=== PATIENT | male | born 1995 | race Caucasian/White ===

== ENCOUNTER 2017-07-15 21:56 | Observation (INO) | payer BC ==
[~2017-07-15] VITALS: Ht 190.5 cm; Wt 113.4 kg
[2017-07-15 22:00] VITALS: BP 153/65; PULSE 52; RESP 16; TEMP 98.3; O2SAT 100
[2017-07-15 22:13] VITALS: BP 148/79; PULSE 65; RESP 17; O2SAT 98
[2017-07-15 22:57] LABS: AUTOMATED NEUTROPHIL # 4.2 TH/MM3 (1.8-7.7); BASOPHIL % 0.5 % (0.0-2.0); EOSINOPHIL # 0.2 TH/MM3 (0-0.4); EOSINOPHIL % 3.3 % (0.0-4.0); HEMATOCRIT 39.4 % (39.0-51.0); HEMOGLOBIN 13.2 GM/DL (13.0-17.0); LYMPH % 33.7 % (9.0-44.0); LYMPHOCYTE # 2.5 TH/MM3 (1.0-4.8); MEAN CELL VOLUME 88.4 FL (80.0-100.0); MEAN CORPUSCULAR HEMOGLOBIN 29.5 PG (27.0-34.0); MEAN CORPUSCULAR HGB CONC 33.4 % (32.0-36.0); MEAN PLATELET VOLUME 8.4 FL (7.0-11.0); MONO % 7.8 % (0.0-8.0); MONOCYTE # 0.6 TH/MM3 (0-0.9); NEUT % 54.7 % (16.0-70.0); PLATELET COUNT 202 TH/MM3 (150-450); RED BLOOD COUNT 4.46 MIL/MM3 (4.50-5.90); RED CELL DISTRIBUTION WIDTH 12.9 % (11.6-17.2); WHITE BLOOD COUNT 7.5 TH/MM3 (4.0-11.0)
[2017-07-15 23:06] LABS: CHLORIDE 106 MEQ/L (98-107); SODIUM (NA) 140 MEQ/L (136-145)
[2017-07-15 23:09] LABS: CALCIUM 8.7 MG/DL (8.5-10.1)
[2017-07-15 23:10] LABS: ALBUMIN 3.5 GM/DL (3.4-5.0); BICARBONATE 28.1 MEQ/L (21.0-32.0); BLOOD UREA NITROGEN 27 MG/DL (7-18); GLUCOSE,RANDOM 101 MG/DL (74-106)
[2017-07-15 23:13] LABS: ALT (GPT) 31 U/L (12-78); AST (GOT) 24 U/L (15-37); GLOMERULAR FILTRATION RATE 59 ML/MIN (>89)
[2017-07-15 23:14] LABS: TOTAL BILIRUBIN ADULT 0.2 MG/DL (0.2-1.0)
[2017-07-15 23:15] LABS: ALKALINE PHOSPHATASE 58 U/L (45-117)
[2017-07-16 00:11] LABS: BILIRUBIN, URINE NEG (NEG); BLOOD, URINE NEG (NEG); GLUCOSE,URINE NEG (NEG); KETONE, URINE NEG (NEG); NITRITE,URINE NEG (NEG); URINE COLOR YELLOW (YELLW/STRAW); URINE LEUKOCYTE ESTERASE NEG (NEG)
[2017-07-16 00:16] LABS: SQUAMOUS EPITHELIAL CELL URINE 0-5 /hpf (0-5); WBC, URINE 0-2 /hpf (0-5)
[2017-07-16] MEDS ORDERED: SODIUM CHLOR 0.9% 1000 ML INJ 1,000 ML IV SCH (00:18)
--- NOTE | 2017-07-16 00:24 | PD ---
HPI Chief Complaint: Abdominal Pain Time Seen by Provider: 00:18 Travel History International Travel<30 days: No Contact w/Intl Traveler<30days: No Traveled to known affect area: No History of Present Illness HPI The patient is a 22-year-old male that complains of pain in the right middle quadrant for about 48 hours. Yesterday had nausea with vomiting. He denies any fever. He has never had any abdominal surgery and still has his appendix and gallbladder. His pain is dull pain and a 6/10. PFSH Past Medical History Medical History: Denies Significant Hx Diminished Hearing: No Immunizations Current: Yes Tetanus Vaccination: > 5 Years Influenza Vaccination: No Past Surgical History Surgical History: No Previous Surgery Social History Alcohol Use: No Tobacco Use: No Substance Use: No Allergies-Medications (Allergen,Severity, Reaction): Coded Allergies: No Known Allergies (Unverified , 07/15/17) Reported Meds & Prescriptions Reported Meds & Active Scripts Active No Active Prescriptions or Reported Medications Review of Systems Except as stated in HPI: all other systems reviewed are Neg Physical Exam Narrative GENERAL: The patient is alert, oriented 3 in slight apparent distress with his abdominal discomfort. His vital signs show blood pressure 153/65 but repeat blood pressure is 148/79. The rest of the vital signs are normal. SKIN: Focused skin assessment warm/dry. HEAD: Atraumatic. Normocephalic. EYES: Pupils equal and round. No scleral icterus. No injection or drainage. ENT: No nasal bleeding or discharge. Mucous membranes pink and moist. NECK: Trachea midline. No JVD. CARDIOVASCULAR: Regular rate and rhythm. No murmur appreciated. RESPIRATORY: No accessory muscle use. Clear to auscultation. Breath sounds equal bilaterally. GASTROINTESTINAL: Abdomen soft, with tenderness to direct palpation to the right of the umbilicus, nondistended. Hepatic and splenic margins not palpable. No guarding or rebound is present. MUSCULOSKELETAL: No obvious deformities. No clubbing. No cyanosis. No edema. NEUROLOGICAL: Awake and alert. No obvious cranial nerve deficits. Motor grossly within normal limits. Normal speech. PSYCHIATRIC: Appropriate mood and affect; insight and judgment normal. Data Data Last Documented VS Vital Signs Date Time Temp Pulse Resp B/P (MAP) Pulse Ox O2 Delivery O2 Flow Rate FiO2 07/16/17 00:34 72 18 138/63 (88) 98 Room Air 07/15/17 22:00 98.3 Orders Orders Complete Blood Count With Diff (07/15/17 22:49) Comprehensive Metabolic Panel (07/15/17 22:49) Urinalysis - C+S If Indicated (07/15/17 22:49) Iv Access Insert/Monitor (07/15/17 22:49) Lipase (07/15/17 22:49) Ct Abd/Pel W Iv Contrast(Rout) (07/16/17 00:18) Ecg Monitoring (07/16/17 00:18) Oximetry (07/16/17 00:18) Sodium Chlor 0.9% 1000 Ml Inj (Ns 1000 M (07/16/17 00:18) Sodium Chloride 0.9% Flush (Ns Flush) (07/16/17 00:30) Piperacillin/Den 3.375 Gm Vial (Zosyn 3. (07/16/17 02:30) Admit Order (Ed Use Only) (07/16/17 02:20) Labs Laboratory Tests Test 07/15/17 22:40 07/15/17 23:55 White Blood Count 7.5 TH/MM3 Red Blood Count 4.46 MIL/MM3 Hemoglobin 13.2 GM/DL Hematocrit 39.4 % Mean Corpuscular Volume 88.4 FL Mean Corpuscular Hemoglobin 29.5 PG Mean Corpuscular Hemoglobin Concent 33.4 % Red Cell Distribution Width 12.9 % Platelet Count 202 TH/MM3 Mean Platelet Volume 8.4 FL Neutrophils (%) (Auto) 54.7 % Lymphocytes (%) (Auto) 33.7 % Monocytes (%) (Auto) 7.8 % Eosinophils (%) (Auto) 3.3 % Basophils (%) (Auto) 0.5 % Neutrophils # (Auto) 4.2 TH/MM3 Lymphocytes # (Auto) 2.5 TH/MM3 Monocytes # (Auto) 0.6 TH/MM3 Eosinophils # (Auto) 0.2 TH/MM3 Basophils # (Auto) 0.0 TH/MM3 CBC Comment DIFF FINAL Differential Comment Blood Urea Nitrogen 27 MG/DL Creatinine 1.50 MG/DL Random Glucose 101 MG/DL Total Protein 7.0 GM/DL Albumin 3.5 GM/DL Calcium Level 8.7 MG/DL Alkaline Phosphatase 58 U/L Aspartate Amino Transf (AST/SGOT) 24 U/L Alanine Aminotransferase (ALT/SGPT) 31 U/L Total Bilirubin 0.2 MG/DL Sodium Level 140 MEQ/L Potassium Level 4.2 MEQ/L Chloride Level 106 MEQ/L Carbon Dioxide Level 28.1 MEQ/L Anion Gap 6 MEQ/L Estimat Glomerular Filtration Rate 59 ML/MIN Lipase 161 U/L Urine Color YELLOW Urine Turbidity CLEAR Urine pH 6.0 Urine Specific [place] 1.025 Urine Protein NEG mg/dL Urine Glucose (UA) NEG mg/dL Urine Ketones NEG mg/dL Urine Occult Blood NEG Urine Nitrite NEG Urine Bilirubin NEG Urine Urobilinogen 0.2 MG/DL Urine Leukocyte Esterase NEG Urine WBC 0-2 /hpf Urine Squamous Epithelial Cells 0-5 /hpf Microscopic Urinalysis Comment CULT NOT INDICATED MDM Medical Decision Making Medical Screen Exam Complete: Yes Emergency Medical Condition: Yes Medical Record Reviewed: Yes Interpretation(s) The CBC is normal. The urinalysis is normal. The complete metabolic profile shows a BUN of 27, creatinine 1.5, GFR 59 but is otherwise unremarkable. Lipase is normal. The CT abdomen/pelvis shows an early, uncomplicated acute appendicitis. Differential Diagnosis Acute appendicitis, urinary stone, colitis, cholecystitis, gastritis Narrative Course The patient has an early acute appendicitis. The imaging show the appendicitis was early in the white count is normal. The patient will be [address] Armijo and is given Zosyn. Diagnosis Primary Impression: Acute appendicitis Admitting Information Admitting Physician Requests: Observation Scripts No Active Prescriptions or Reported Meds Atilio Santos MD Jul 16, 2017 00:24
[2017-07-16] MEDS ORDERED: SODIUM CHLORIDE 0.9% FLUSH 10 ML FLUSH IV FLUSH PRN (00:30)
[2017-07-16 00:34] VITALS: BP 138/63; PULSE 72; RESP 18; O2SAT 98
[2017-07-16] MEDS ORDERED: IOHEXOL 350 MG/ML 10 ML VIAL (for RAD DIAG) IVCONTRAST ONE (01:12)
--- NOTE | 2017-07-16 01:54 | RADRPT ---
EXAM DATE/TIME: 07/16/2017 00:50 [facility] COMPARISON: No previous studies available for comparison. INDICATIONS : Right sided abdominal pain, nausea, vomiting and chills. IV CONTRAST: 85 cc Omnipaque 350 (iohexol) IV ORAL CONTRAST: No oral contrast ingested. RADIATION DOSE: 18.45 CTDIvol (mGy) MEDICAL HISTORY : None SURGICAL HISTORY : None. ENCOUNTER: Initial ACUITY: 1 day PAIN SCALE: 5/10 LOCATION: Right lower quadrant TECHNIQUE: Volumetric scanning of the abdomen and pelvis was performed. Using automated exposure control and ad justment of the mA and/or kV according to patient size, radiation dose was kept as low as reasonably achievable to obtain optimal diagnostic quality images. DICOM format image data is available electro nically for review and comparison. FINDINGS: LOWER LUNGS: The visualized lower lungs are clear. LIVER: Homogeneous density without lesion. There is no dilation of the biliary tree. No calcified gallston es. SPLEEN: Normal size without lesion. PANCREAS: Within normal limits. KIDNEYS: Normal in size and shape. There is no mass, stone or hydronephrosis. ADRENAL GLANDS: Within normal limits. VASCULAR: There is no aortic aneurysm. BOWEL/MESENTERY: There is an abnormal tubular structure extending off the cecum which extends cephalad. This measures up to approximately 1.3 cm in diameter . There is no free air. There is apparent mild wall thickening and mild surrounding inflammatory change. There is no appendicolith. The bowel gas pattern is otherw ise unremarkable. There is no free air or fluid. ABDOMINAL WALL: Within normal limits. RETROPERITONEUM: There is no lymphadenopathy. BLADDER: No wall thickening or mass. REPRODUCTIVE: Within normal limits. INGUINAL: There is no lymphadenopathy or hernia. MUSCULOSKELETAL: Within normal limits for patient age. CONCLUSION: Findings characteristic of early acute appendicitis. Abhilash Garcia MD on July 16, 2017 at 1:12 Board Certified Radiologist. This report was verified electronically.
[2017-07-16] MEDS ORDERED: PIPERACILLIN/TAZ 3.375 GM VIAL 3.375 GM in SODIUM CHLORIDE 0.9% INJ 50 ML IV ONE (02:30)
[2017-07-16 02:35] VITALS: BP 124/68; PULSE 78; RESP 16; O2SAT 100
[2017-07-16] MEDS ORDERED: PIPERACIL-TAZO 3.375 GM PREMIX 50 ML IV ONE (02:45)
[2017-07-16 07:03] VITALS: BP 135/60; PULSE 54; RESP 16; O2SAT 99
--- NOTE | 2017-07-16 07:43 | HHI.HP ---
HPI Service General surgery Primary Care Physician Vishnu Pack Admission Diagnosis Acute appendicitis Chief Complaint: Abdominal pain nausea vomiting anorexia History of Present Illness Patient presents with a was now 48 hour history of waking up about 48 hours ago around midnight with severe right side mid abdominal pain. This was associated with fevers chills and sweats. He developed nausea and emesis and throughout for about 12 hours straight until he was finally able to fall back asleep. After waking up again he felt much better but was anorexic. It is very unusual for him. He is brought to the emergency department for evaluation. He was found to have normal labs and was dehydrated. Blood cell count was normal. Due to his severity of symptoms a CT scan of the abdomen and pelvis was performed which shows a distended inflamed appendix in the right paracolic gutter. He is otherwise healthy, has had no prior abdominal surgeries. He takes no routine medications. Review of Systems Constitutional: COMPLAINS OF: Diaphoretic episodes, Fever, Chills, Change in appetite Past Family Social History Past Medical History None Past Surgical History None Reported Medications None Allergies: Coded Allergies: No Known Allergies (Unverified , 07/15/17) Active Ordered Medications Current Medications Medications (Trade) Dose Ordered Sig/Lupe Route Start Time Stop Time Status Last Admin (NS Flush) 2 ml UNSCH PRN IV FLUSH 07/16/17 00:30 Family History Dementia and Alzheimer's disease Social History He is a non-smoker nondrinker. He denies HIV or hepatitis risk factors. 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 Physical Exam Vital Signs Vital Signs Date Time Temp Pulse Resp B/P (MAP) Pulse Ox O2 Delivery O2 Flow Rate FiO2 07/16/17 07:03 54 16 135/60 (85) 99 Room Air 07/16/17 02:35 78 16 124/68 (86) 100 Room Air 07/16/17 00:34 72 18 138/63 (88) 98 Room Air 07/15/17 22:13 65 17 148/79 (102) 98 07/15/17 22:00 98.3 52 16 153/65 (94) 100 Physical Exam Is well-developed well-developed well-nourished gentleman in no acute distress. Is pleasant and cooperative exam. He is accompanied by his mother and girlfriend. HEENT is normocephalic atraumatic his pupils are equal round reactive to light. His sclera are anicteric. His oropharynx is clear without mucosal lesions. His neck is supple without adenopathy he has a midline trachea no jugular venous distention. His lung sounds are clear and equal anteriorly. His heart sounds are regular without murmur rub or gallop. His abdomen is soft and nondistended he has no scars. He has no hernias. He has normal bowel sounds. He is tender to palpation the right mid abdomen without rebound or guarding. Genital and rectal exams were not repeated. His extremities show no cyanosis clubbing or edema. He has got equal radial and dorsalis pedis pulses. Neurologically he is awake alert and oriented. Is equal bilateral mercury washer strength. He has no gross motor or sensory deficits. Laboratory Laboratory Tests Test 07/15/17 22:40 07/15/17 23:55 White Blood Count 7.5 Red Blood Count 4.46 Hemoglobin 13.2 Hematocrit 39.4 Mean Corpuscular Volume 88.4 Mean Corpuscular Hemoglobin 29.5 Mean Corpuscular Hemoglobin Concent 33.4 Red Cell Distribution Width 12.9 Platelet Count 202 Mean Platelet Volume 8.4 Neutrophils (%) (Auto) 54.7 Lymphocytes (%) (Auto) 33.7 Monocytes (%) (Auto) 7.8 Eosinophils (%) (Auto) 3.3 Basophils (%) (Auto) 0.5 Neutrophils # (Auto) 4.2 Lymphocytes # (Auto) 2.5 Monocytes # (Auto) 0.6 Eosinophils # (Auto) 0.2 Basophils # (Auto) 0.0 CBC Comment DIFF FINAL Differential Comment Blood Urea Nitrogen 27 Creatinine 1.50 Random Glucose 101 Total Protein 7.0 Albumin 3.5 Calcium Level 8.7 Alkaline Phosphatase 58 Aspartate Amino Transf (AST/SGOT) 24 Alanine Aminotransferase (ALT/SGPT) 31 Total Bilirubin 0.2 Sodium Level 140 Potassium Level 4.2 Chloride Level 106 Carbon Dioxide Level 28.1 Anion Gap 6 Estimat Glomerular Filtration Rate 59 Lipase 161 Urine Color YELLOW Urine Turbidity CLEAR Urine pH 6.0 Urine Specific [place] 1.025 Urine Protein NEG Urine Glucose (UA) NEG Urine Ketones NEG Urine Occult Blood NEG Urine Nitrite NEG Urine Bilirubin NEG Urine Urobilinogen 0.2 Urine Leukocyte Esterase NEG Urine WBC 0-2 Urine Squamous Epithelial Cells 0-5 Microscopic Urinalysis Comment CULT NOT INDICATED Result Diagram: 07/15/17223907/15/172239 Imaging CT scan shows findings consistent with acute appendicitis. Appendix appears to be located in the right paracolic gutter. Course Patient was given antibiotics in the emergency department. Plans are made for laparoscopic appendectomy possible open surgery this morning in the OR. Caprini VTE Risk Assessment Caprini VTE Risk Assessment: Mod/High Risk (score >= 2) Caprini Risk Assessment Model Point Value = 1 Point Value = 2 Point Value = 3 Point Value = 5 Age 41-60 Minor surgery BMI > 25 kg/m2 Swollen legs Varicose veins or History of unexplained or recurrent spontaneous Oral contraceptives or hormone replacement Sepsis (< 1 month) Serious lung disease, including pneumonia (< 1 month) Abnormal pulmonary function Acute myocardial infarction Congestive heart failure (< 1 month) History of inflammatory bowel disease Medical patient at bed rest Age 61-74 Arthroscopic surgery Major open surgery (> 45 min) Laparoscopic surgery (> 45 min) Malignancy Confined to bed (> 72 hours) Immobilizing plaster cast Central venous access Age >= 75 History of VTE Family history of VTE Factor V Leiden Prothrombin [id number] Lupus anticoagulant Anticardiolipin antibodies Elevated serum homocysteine Heparin-induced thrombocytopenia Other congenital or acquired thrombophilia Stroke (< 1 month) Elective arthroplasty Hip, pelvis, or leg fracture Acute spinal cord injury (< 1 month) Prophylaxis Regimen Total Risk Factor Score Risk Level Prophylaxis Regimen 0-1 Low Early ambulation 2 Moderate Order ONE of the following: *Sequential Compression Device (SCD) *Heparin 5000 units SQ BID 3-4 Higher Order ONE of the following medications: *Heparin 5000 units SQ TID *Enoxaparin/Lovenox 40 mg SQ daily (WT < 150 kg, CrCl > 30 mL/min) *Enoxaparin/Lovenox 30 mg SQ daily (WT < 150 kg, CrCl > 10-29 mL/min) *Enoxaparin/Lovenox 30 mg SQ BID (WT < 150 kg, CrCl > 30 mL/min) AND/OR *Sequential Compression Device (SCD) 5 or more Highest Order ONE of the following medications: *Heparin 5000 units SQ TID (Preferred with Epidurals) *Enoxaparin/Lovenox 40 mg SQ daily (WT < 150 kg, CrCl > 30 mL/min) *Enoxaparin/Lovenox 30 mg SQ daily (WT < 150 kg, CrCl > 10-29 mL/min) *Enoxaparin/Lovenox 30 mg SQ BID (WT < 150 kg, CrCl > 30 mL/min) AND *Sequential Compression Device (SCD) Assessment and Plan Problem List: (1) Acute appendicitis ICD Codes: K35.80 - Unspecified acute appendicitis Status: Acute Assessment and Plan There is an otherwise healthy 22-year-old male with an apparent acute appendicitis. Plans were made for laparoscopic appendectomy. The procedure in detail plus risks of bleeding infection injury to intra-abdominal contents including bowel ureter bladder possible open surgery DVT pulmonary emesis and expectations for recovery were reviewed in detail with the patient's mother and his girlfriend. They understand. All questions were answered. Patient is received preoperative antibiotics. Sequential compression device will be used. We anticipate potential discharge later this afternoon. He will be discharged if he is able to eat and drink and tolerate pain medicine by mouth he will be able to go home. Ice will assist in his discomfort therapy. He will need follow-up with me in the office 1-2 weeks postoperatively. Moris Armijo MD Jul 16, 2017 07:43
[2017-07-16] MEDS ORDERED: MIDAZOLAM HCL 2 MG/2 ML VIAL ONE (07:51)
[2017-07-16] MEDS ORDERED: BUPIVACAINE/EPINEPHRINE 0.25% 50 ML VIAL ONE (07:58)
[2017-07-16] MEDS ORDERED: FAMOTIDINE 20 MG/2 ML VIAL ONE (08:22)
[2017-07-16] MEDS ORDERED: LACTATED RINGER'S 1000 ML INJ 1,000 ML ONE (08:51)
[2017-07-16] MEDS ORDERED: LACTATED RINGER'S 1000 ML INJ 1,000 ML IV SCH (09:23)
--- NOTE | 2017-07-16 09:23 | PD.PROCEDR ---
Procedure Note Procedure Preoperative diagnosis Acute appendicitis Postoperative diagnosis Same Procedure Laparoscopic appendectomy Surgeon Moris Armijo MD Anesthesia General endotracheal Indications This is an otherwise healthy 22-year-old male experienced acute onset of right side mid abdominal pain nausea and emesis fevers chills and sweats. CT scan demonstrates a distended inflamed appendix in the right paracolic gutter. Recommendations have been made for laparoscopic appendectomy. Intraoperative findings Mildly distended thickened appendix in the right paracolic gutter in the retroperitoneal position. Appendix removed and sent to pathology. Estimated blood loss is minimal. Incidental adhesion to the gallbladder. Photographs taken. Description of procedure in detail The patient was identified as Clarence Zapata, taken to the operating room and placed in a supine position. Sequential compression devices were placed on bilateral lower extremities. Following induction of adequate general endotracheal anesthesia the patient's abdomen was prepped and draped in usual sterile fashion with Betadine. A timeout procedure was performed, following completion of timeout procedure everyone's satisfaction within the room local anesthetic was infiltrated the proposed trocar incision sites. Initial incision was in the supraumbilical area of the umbilicus. A scalpel was used and dissection continued posteriorly to level the midline fascia. The base of the umbilicus was retracted anteriorly in the supraumbilical midline fascia was incised with a scalpel. Entry into the peritoneal cavity was facilitated with the surgeon's finger and the applied medical balloon Hernandez trocar was placed into the peritoneal cavity its balloon inflated and CO2 insufflation to level of 15 mmHg ensued. The patient was then turned slightly to the left. 2 infraumbilical midline 5 mm trochars 1 placed in the peritoneal cavity under direct laparoscopic view after incision and skin with a scalpel. Attention was turned to identification of the appendix. Using blunt graspers it was identified in the retroperitoneal paracolic gutter on the right side. Peritoneum was incised with a harmonic scalpel allowing for mobilization of the appendix. The appendiceal mesentery was taken down with a harmonic scalpel all the way to the base of the appendix at the level of the cecum. A 0 PDS Endoloop was placed across the cecum just proximal to its junction with the appendix. The appendix was amputated distal to this and placed into an Endo retrieval bag and removed through the supraumbilical fascia port incision site and passed off the field for pathologic evaluation. Right paracolic gutter was irrigated copiously with saline. There is no evidence of bleeding. The ligature at the base of the appendix on the cecum was intact. There is no feculent drainage. Brief survey of the remainder of the intra-abdominal contents demonstrated a gallbladder with the omental adhesions to it. The liver stomach small bowel appeared normal. There is no evidence of inguinal hernias. The bladder was present and remained uninjured. Photographs were taken. Remaining local anesthetic was placed through a 5 mm trocar into the right paracolic gutter. Trochars were removed under direct visualization there was no evidence of bleeding from trocar sites. The abdomen was actively distended desufflated through the supraumbilical fascial port which was then removed. Supraumbilical fascia port incision was closed with 2 interrupted figure-of- eight 0 Vicryl sutures. Port sites were irrigated copiously with saline. Skin incisions were approximated for Monocryl subcuticular sutures. Dressings were applied with Mastisol half-inch brown Steri-Strips. The patient tolerated the procedure without apparent complication. Sponge needle and instrument counts were correct at the end of the case. Moris Armijo MD Jul 16, 2017 09:23
[2017-07-16] MEDS ORDERED: Post-op Orders (for Pharmacy) XX ONE (09:30)
[2017-07-16] MEDS ORDERED: ONDANSETRON HCL 4 MG/2 ML VIAL IV PUSH PRN (09:30)
[2017-07-16] MEDS ORDERED: MORPHINE SULFATE 8 MG/ML INJ IV PUSH PRN (09:30)
[2017-07-16] MEDS ORDERED: ACETAMINOPHEN/HYDROcodone 325 MG/5 MG TAB PO PRN ×2 (09:30)
[2017-07-16] MEDS ORDERED: KETOROLAC TROMETHAMINE 30 MG/ML (IVP) VIAL IVP PRN (09:30)
[2017-07-16] MEDS ORDERED: NORC5TAB PO (09:33)
--- NOTE | 2017-07-16 09:35 | HHI.DS ---
Discharge Summary Admission Date Jul 16, 2017 at 02:22 Discharge Date: Jul 16, 2017 Admitting Diagnosis Acute appendicitis (1) Acute appendicitis ICD Codes: K35.80 - Unspecified acute appendicitis Status: Acute Procedures Laparoscopic appendectomy Brief History Patient presents with a was now 48 hour history of waking up about 48 hours ago around midnight with severe right side mid abdominal pain. This was associated with fevers chills and sweats. He developed nausea and emesis and throughout for about 12 hours straight until he was finally able to fall back asleep. After waking up again he felt much better but was anorexic. It is very unusual for him. He is brought to the emergency department for evaluation. He was found to have normal labs and was dehydrated. Blood cell count was normal. Due to his severity of symptoms a CT scan of the abdomen and pelvis was performed which shows a distended inflamed appendix in the right paracolic gutter. He is otherwise healthy, has had no prior abdominal surgeries. He takes no routine medications. CBC/BMP: 07/15/17 2240 07/15/17 2240 Significant Findings Laboratory Tests Test 07/15/17 22:40 07/15/17 23:55 Red Blood Count 4.46 MIL/MM3 (4.50-5.90) Blood Urea Nitrogen 27 MG/DL (7-18) Creatinine 1.50 MG/DL (0.60-1.30) Estimat Glomerular Filtration Rate 59 ML/MIN (>89) PE at Discharge Steri-Strips intact no erythema or ecchymotic change Hospital Course Patient admitted through emergency department to operating room for laparoscopic appendectomy. Uneventful recovery. Discharge home. Pt Condition on Discharge: Good Discharge Disposition: Discharge Home Discharge Instructions DIET: Follow Instructions for: As Tolerated, No Restrictions Activities you can perform: Shower Only-No Bath Activities to Avoid: Driving for 24 hrs, Strenuous Activity Moris Armijo MD Jul 16, 2017 09:35
[2017-07-16] MEDS ORDERED: MORPHINE SULFATE 4 MG/ML INJ ONE (09:40)
[2017-07-16] MEDS ORDERED: PROMETHAZINE INJ 25 MG/ML VIAL ONE (09:41)
[2017-07-16] MEDS ORDERED: ACETAMINOPHEN 1000 MG/100 ML 100 ML IV ONE (10:00)
[2017-07-16] MEDS ORDERED: DEXAMETHASONE SOD PHOS 4 MG/ML VIAL IV ONE (12:00)
[2017-07-16] MEDS ORDERED: PROPOFOL 200 MG/20 ML AMP IV ONE (12:00)
[2017-07-16] MEDS ORDERED: NEOSTIGMINE 5 MG/5 ML SYRINGE IV PUSH ONE (12:00)
[2017-07-16] MEDS ORDERED: GLYCOPYRROLATE 1 MG/5 ML SYRINGE IV PUSH ONE (12:00)
[2017-07-16] MEDS ORDERED: ceFAZolin INJ 1,000 MG VIAL IV ONE (12:00)
[2017-07-16] MEDS ORDERED: LIDOCAINE HCL 1% PF 5 ML SYRINGE OTHER ONE (12:00)
[2017-07-16] MEDS ORDERED: ROCURONIUM INJ 50 MG/5 ML SYRINGE IV PUSH ONE (12:00)
[2017-07-16] MEDS ORDERED: ONDANSETRON HCL 4 MG/2 ML VIAL IV PUSH ONE (12:00)
[2017-07-16 12:45] VITALS: BP 131/75; PULSE 58; RESP 16; TEMP 97.8; O2SAT 100
== END 2017-07-16 12:52 | disposition home or self-care (01) ==
LOC: PHED 21:56 → PHEDA 07-16 02:22 → PHEDH 07-16 06:39 → HPAC 07-16 08:04 → UNDODISOB 07-16 12:52
PROVIDERS: ADMIT Surgery Trauma Surgery; ATTEND Surgery Trauma Surgery
DX: K35.80 Unspecified acute appendicitis (principal); E86.0 Dehydration; K82.8 Other specified diseases of gallbladder
CPT/HCPCS: 00840; 44970; 74177; 80053; 81001; 83690; 85025; 88304; 96361; 96365; 99285; G0378; J0131; J0690; J1100; J2250; J2270; J2405; J2543; J2550; J2710; J3010; J7030; J7120; Q9967